=== PATIENT | female | born 1965 | race Caucasian/White ===

== ENCOUNTER 2018-06-03 22:32 | Emergency (ER) | payer MEDICARE, MEDICAID ==
[~2018-06-03] VITALS: Ht 167.6 cm; Wt 108.9 kg
[2018-06-03] MEDS ORDERED: GABAPENTIN300 MG ORAL (22:41)
[2018-06-03] MEDS ORDERED: LEXAPRO20 MG ORAL (22:41)
[2018-06-03] MEDS ORDERED: LISINOPRIL10 MG ORAL (22:42)
[2018-06-03] MEDS ORDERED: LORAZEPAM2 MG ORAL (22:43)
[2018-06-03] MEDS ORDERED: MILK OF MA400 MG/51 ORAL (22:44)
[2018-06-03] MEDS ORDERED: COZAAR50 MG ORAL (22:44)
[2018-06-03] MEDS ORDERED: NORVASC5 MG ORAL (22:45)
[2018-06-03] MEDS ORDERED: NORCO 5-325 TA1 EACH ORAL (22:45)
[2018-06-03] MEDS ORDERED: PROTONIX40 MG ORAL (22:46)
[2018-06-03] MEDS ORDERED: TEMAZEPAM15 MG ORAL (22:47)
[2018-06-03] MEDS ORDERED: RISPERDAL2 MG ORAL (22:47)
[2018-06-03] MEDS ORDERED: TOPIRAMATE100 MG ORAL (22:48)
[2018-06-03] MEDS ORDERED: Morphine Sulfate 4mg/ml Inj (IV USE ONLY) IVP ONE (23:45)
[2018-06-03 23:51] LABS: BASOPHILS % (AUTO) 1.3 % (0.0-2.0); EOSINOPHILS % (AUTO) 1.4 % (0.0-3.0); HEMATOCRIT 36.8 % (37.0-47.0); HEMOGLOBIN 12.6 G/DL (12.0-16.0); LYMPHOCYTES % (AUTO) 43.6 % (20.0-45.0); MEAN CORPUSCULAR VOLUME 84 FL (80-99); MONOCYTES % (AUTO) 6.8 % (1.0-10.0); NEUTROPHILS % (AUTO) 46.9 % (45.0-75.0); PLATELET COUNT 300 K/UL (150-450); RED BLOOD COUNT 4.36 M/UL (4.20-5.40); RED CELL DISTRIBUTION WIDTH 13.9 % (11.6-14.8); WHITE BLOOD COUNT 9.8 K/UL (4.8-10.8)
[2018-06-03 23:54] LABS: APPEARANCE,URINE CLEAR; BILIRUBIN, URINE NEGATIVE (NEGATIVE); COLOR,URINE PALE YELLOW; GLUCOSE, URINE (UA) NEGATIVE (NEGATIVE); KETONES,URINE NEGATIVE (NEGATIVE); LEUKOCYTE ESTERASE ,URINE NEGATIVE (NEGATIVE); NITRITE,URINE NEGATIVE (NEGATIVE); PH,URINE 6.5 (4.5-8.0); PROTEIN,URINE NEGATIVE (NEGATIVE); UROBILINOGEN,URINE NORMAL MG/DL (0.0-1.0)
[2018-06-03 23:56] LABS: ANION GAP 8 mmol/L (5-15); BLOOD UREA NITROGEN 14 mg/dL (7-18); CARBON DIOXIDE 25 MMOL/L (21-32); CHLORIDE 103 MMOL/L (98-107); CREATININE 0.8 MG/DL (0.55-1.30); POTASSIUM 3.4 MMOL/L (3.5-5.1); SODIUM 136 MMOL/L (136-145)
[2018-06-04 00:02] LABS: ALANINE AMINOTRANSFERASE 21 U/L (12-78); ALBUMIN 3.7 G/DL (3.4-5.0); ALBUMIN/GLOBULIN RATIO 1.1 (1.0-2.7); ALKALINE PHOSPHATASE 90 U/L (46-116); ASPARTATE AMINO TRANSFERASE 17 U/L (15-37); BILIRUBIN,TOTAL 0.2 MG/DL (0.2-1.0)
--- NOTE | 2018-06-04 00:15 | Emergency Room Report ---
History of Present Illness General Chief Complaint: Abdominal Pain Source: Patient, Medical Record Present Illness HPI This is a 52-year-old female with a history of orbital obesity, COPD, chronic pain and she called 911 from a detention in [place] request to come here. She presents with chief complaint of back pain. This is a chronic issue for her. She also has abdominal pain. She received T[place] and said it wasn't helping. Pain is 9 out of 10. No radiation. No trauma. Never has been here before. She claimed that her manager of case told her to come here. There is no radiation of her pain. No incontinence of bowel or urine. Nothing made it better. Movement made it worse. Allergies: Coded Allergies: No Known Allergies (Unverified , 06/03/18) Patient History Past Medical History: see triage record, old chart reviewed, psych hx Past Surgical History: other Pertinent Family History: none Social History: Denies: smoking Now: No Immunizations: other Reviewed Nursing Documentation: PMH: Agreed; PSxH: Agreed Nursing Documentation-PMH Past Medical History: No History, Except For Hx Hypertension: Yes Hx COPD: Yes Hx Gastrointestinal Problems: Yes - GERD History Of Psychiatric Problem: Yes - schizoaffective disorder, bipolar, depression Review of Systems Eye: Denies: eye pain, blurred vision ENT: Denies: ear pain, nose congestion, throat swelling Respiratory: Denies: cough, shortness of breath Cardiovascular: Denies: chest pain, palpitations Gastrointestinal: Reports: abdominal pain; Denies: diarrhea, nausea, vomiting Musculoskeletal: Reports: back pain; Denies: joint pain Skin: Denies: rash Neurological: Denies: headache, numbness Endocrine: Denies: increased thirst, increased urine Hematologic/Lymphatic: Denies: easy bruising All Other Systems: negative except mentioned in HPI Physical Exam Vital Signs Date Time Temp Pulse Resp B/P (MAP) Pulse Ox O2 Delivery O2 Flow Rate FiO2 06/03/18 22:33 97.2 56 20 109/64 94 Room Air 97.2 vitals normal Sp02 EP Interpretation: reviewed, normal General Appearance: well appearing, no apparent distress, alert, obese Head: normocephalic, atraumatic Eyes: bilateral eye PERRL, bilateral eye EOMI ENT: hearing grossly normal, normal pharynx Neck: full range of motion, supple, no meningismus Respiratory: chest non-tender, lungs clear, normal breath sounds Cardiovascular #1: regular rate, rhythm, no murmur Gastrointestinal: normal bowel sounds, no mass, no organomegaly, no bruit, non- distended, tenderness - diffuse tenderness Musculoskeletal: back normal - diffuse lower back pain. No step-off. No trauma, normal range of motion Neurologic: alert, oriented x3 Psychiatric: mood/affect normal Skin: warm/dry Medical Decision Making Diagnostic Impression: Primary Impression: Back pain Qualified Codes: M54.5 - Low back pain; G89.29 - Other chronic pain Additional Impression: Abdominal pain Qualified Codes: R10.84 - Generalized abdominal pain ER Course Issue with exacerbation of chronic pain. CT scan is negative for any intra- abdominal pathology. She patient does have degenerative changes of her lumbar spine. No evidence of cauda equina syndrome, spinal epidural abscess or neoplastic process. Lab Results Impression labs normal CT/MRI/US Diagnostic Results CT/MRI/US Diagnostic Results : Imaging Test Ordered: CT abdomen and pelvis Impression negative per radiologist Last Vital Signs Date Time Temp Pulse Resp B/P (MAP) Pulse Ox O2 Delivery O2 Flow Rate FiO2 06/03/18 22:33 97.2 56 20 109/64 94 Room Air 97.2 Status: improved Disposition: HOME, SELF-CARE Condition: Stable Referrals: NON PHYSICIAN (PCP) Additional Instructions: Follow-up with your doctor in 7 days. Continue with your pain regimen. Return if worse. MARIA INES PACHECO M.D. Jun 04, 2018 00:15
--- NOTE | 2018-06-04 01:10 | Diagnostic Imaging Report ---
EXAM: CT Abdomen and Pelvis Without Intravenous Contrast CLINICAL HISTORY: ABD PAIN TECHNIQUE: Axial computed tomography images of the abdomen and pelvis without intravenous contrast. CTDI is 12 mGy and DLP is 979 mGy-cm. One or more of the following dose reduction techniques were used: automated exposure control, adjustment of the mA and/or kV according to patient size, use of iterative reconstruction technique. COMPARISON: No relevant prior studies available. FINDINGS: Lung bases: Unremarkable. No mass. No consolidation. Pleural space: Small right pleural effusion. ABDOMEN: Liver: Hepatomegaly. Gallbladder and bile ducts: Unremarkable. No calcified stones. No ductal dilation. Pancreas: Unremarkable. No ductal dilation. Spleen: Unremarkable. No splenomegaly. Adrenals: Unremarkable. No mass. Kidneys and ureters: Unremarkable. No obstructing stones. No hydronephrosis. Stomach and bowel: Colonic diverticulosis without inflammation. No obstruction. No mucosal thickening. PELVIS: Appendix: No findings to suggest acute appendicitis. Bladder: Unremarkable. No stones. Reproductive: Unremarkable as visualized. ABDOMEN and PELVIS: Intraperitoneal space: Unremarkable. No free air. No significant fluid collection. Bones/joints: No acute fracture. No dislocation. Soft tissues: Unremarkable. Vasculature: Unremarkable. No abdominal aortic aneurysm. Lymph nodes: Unremarkable. No enlarged lymph nodes. IMPRESSION: Small right pleural effusion. No acute intra-abdominal findings.
[2018-06-04 01:26] VITALS: BP 96/47
== END 2018-06-04 01:15 ==
LOC: EDBD 22:32 → EMR 22:59
DX: M54.5 Low back pain (principal); G89.29 Other chronic pain; R10.84 Generalized abdominal pain; G31.89 Other specified degenerative diseases of nervous system; G62.9 Polyneuropathy, unspecified; K21.9 Gastro-esophageal reflux disease without esophagitis; F25.0 Schizoaffective disorder, bipolar type; F32.9 Major depressive disorder, single episode, unspecified; J44.9 Chronic obstructive pulmonary disease, unspecified; E66.9 Obesity, unspecified
CPT/HCPCS: 36415; 74176; 80053; 81003; 83690; 85025; 96361; 96374; 96375; 99285; J2270; J2405